=== PATIENT | male | born 1990 | race Hispanic/Latino ===

== ENCOUNTER 2017-12-03 18:19 | Emergency (ER) | payer OTHER ==
[2017-12-03] MEDS: KETOROLAC TROMETHAMINE 10 MG TAB PO (17:33)
== END 2017-12-03 18:37 | disposition home or self-care (01) ==
LOC: M ED 18:19
DX: S92.50 Unspecified fracture of lesser toe(s) (principal); X50.9XXA Other and unspecified overexertion or strenuous movements or postures, initial encounter; Y92.830 Public park as the place of occurrence of the external cause
CPT/HCPCS: 73660